=== PATIENT | male | born 1950 | race Hispanic/Latino ===

== ENCOUNTER 2021-12-11 08:11 | Day surgery (SDC) | payer OTHER ==
[2021-12-08 11:23] LABS: BASOPHILS % (AUTO) 0.8 % (0.0-5.0); HEMATOCRIT 44.7 % (42-54); MEAN CORPUSCULAR HEMOGLOBIN 32.4 pg (27.0-33.0); MEAN CORPUSCULAR VOLUME 95.3 fL (79-99); MONOCYTES % (AUTO) 11.9 % (3.0-13.0); PLATELET COUNT (AUTO) 195 K/uL (130-400); RED BLOOD CELL COUNT(AUTO) 4.69 MIL/uL (4.50-6.20)
[2021-12-08 11:31] LABS: CREATININE 0.8 mg/dL (0.5-1.5); POTASSIUM 4.3 mmol/L (3.5-5.1)
[2021-12-08 13:49] VITALS: BP 148/74
[2021-12-11] VITALS (16 sets, daily range): BP systolic 106–160; BP diastolic 52–83
[~2021-12-11] VITALS: Ht 160 cm; Wt 89.6 kg
[~2021-12-11 08:11] MED LIST: AMLO-258 PO; ASPI-449 PO; CEFAZOLIN SODIUM 2 GM VIAL IV SCH; DEXAMETHASONE SOD PHOSPHATE 10MG/ML 1ML VIAL ONE; FENTANYL CITRATE PF 50 MCG/1 ML 2ML VIAL ONE; GLYCOPYRROLATE 1 MG/5 ML SYRINGE ONE; IBUP-2070 PO; LIDOCAINE PF 100MG/5ML (2%) SYRINGE 5ML ONE; METO25TA6 PO; MIDAZOLAM HCL 1 MG/ML 2ML VIAL ONE; NEOSTIGMINE 5MG/5ML SYR IV ONE; ONDANSETRON 4MG INJ ONE; PROPOFOL 10 MG/ML 20ML VIAL IV ONE; ROCURONIUM 10MG/1ML SYR 10 MG/ML ML ONE; SUCCINYLCHOLINE 200MG/10ML SYR ONE
[2021-12-11] MEDS ORDERED: LACTATED RINGERS 1000ML 1,000 ML IV ONE (08:25)
[2021-12-11] MEDS ORDERED: CEFAZOLIN SODIUM 1 GM VIAL ONE (08:25)
[2021-12-11] MEDS ORDERED: INDOCYANINE GREEN 25 MG VIAL IJ ONE (09:07)
[2021-12-11] MEDS ORDERED: BUPIVACAINE/PF 0.5% 30ML VIAL ONE (09:08)
[2021-12-11] MEDS ORDERED: FENTANYL CITRATE PF 50 MCG/1 ML 2ML VIAL ONE (10:31)
[2021-12-11] MEDS ORDERED: ARTIFICIAL TEARS 3.5 GM OINTMENT ONE (10:51)
[2021-12-11] MEDS ORDERED: OXYMETAZOLINE HCL SPRAY 15 ML BOTTLE ONE (10:51)
[2021-12-11] MEDS ORDERED: MEPERIDINE-PF 25 MG/ML SYG ONE ×2 (11:29→11:37)
[2021-12-11] MEDS ORDERED: ONDANSETRON 4MG INJ ONE (12:46)
== END 2021-12-11 13:10 | disposition home or self-care (01) ==
LOC: DAH 08:11
PROVIDERS: ATTEND Surgery
DX: K81.1 Chronic cholecystitis (principal); K82.8 Other specified diseases of gallbladder; I10 Essential (primary) hypertension; E66.9 Obesity, unspecified; Z79.82 Long term (current) use of aspirin; Z80.9 Family history of malignant neoplasm, unspecified; Z79.899 Other long term (current) drug therapy; Z68.35 Body mass index [BMI] 35.0-35.9, adult
CPT/HCPCS: 47562; S2900; 36415; 80048; 85025; 87635; 93005; C9803; J0330; J0690; J1100; J2001; J2175; J2250; J2405; J2704; J2710; J3010; J3490; J7030; J7120

== ENCOUNTER 2025-03-06 14:07 | Emergency (ER) | payer MEDICARE, OTHER ==
[~2025-03-06] VITALS: Ht 157.5 cm; Wt 72.6 kg
[~2025-03-06 14:07] MED LIST changes: -CEFAZOLIN SODIUM 2 GM VIAL IV SCH; -DEXAMETHASONE SOD PHOSPHATE 10MG/ML 1ML VIAL ONE; -FENTANYL CITRATE PF 50 MCG/1 ML 2ML VIAL ONE; -GLYCOPYRROLATE 1 MG/5 ML SYRINGE ONE; -LIDOCAINE PF 100MG/5ML (2%) SYRINGE 5ML ONE; -MIDAZOLAM HCL 1 MG/ML 2ML VIAL ONE; -NEOSTIGMINE 5MG/5ML SYR IV ONE; -ONDANSETRON 4MG INJ ONE; -PROPOFOL 10 MG/ML 20ML VIAL IV ONE; -ROCURONIUM 10MG/1ML SYR 10 MG/ML ML ONE; -SUCCINYLCHOLINE 200MG/10ML SYR ONE
--- NOTE | 2025-03-06 14:14 | NUR ---
TRAUMA DOWGRADED AT THIS TIME PER DR. ROCHA.
--- NOTE | 2025-03-06 14:28 | EKG ---
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
[2025-03-06 14:54] LABS: BASOPHILS # (AUTO) 0.05 K/uL (0.00-0.20); BASOPHILS % (AUTO) 0.8 % (0.0-5.0); EOSINOPHILS # (AUTO) 0.22 K/uL (0.00-0.70); EOSINOPHILS % (AUTO) 3.6 % (0.0-8.0); HEMATOCRIT 43.5 % (42-54); IMMATURE GRANULOCYTE ABSOLUTE 0.05 K/uL (0-1); LYMPHOCYTES # (AUTO) 0.8 K/uL (1.0-4.8); LYMPHOCYTES % (AUTO) 13.1 % (21.0-51.0); MEAN CORPUSCULAR HEMOGLOBIN 32.8 pg (27.0-33.0); MEAN CORPUSCULAR HGB CONC 34.7 g/dL (32.0-36.0); MEAN CORPUSCULAR VOLUME 94.4 fL (79-99); MONOCYTES # (AUTO) 0.6 K/uL (0.1-1.0); MONOCYTES % (AUTO) 9.1 % (3.0-13.0); NEUTROPHILS # (AUTO) 4.5 K/uL (1.8-7.7); NEUTROPHILS % (AUTO) 72.6 % (40.0-77.0); PLATELET COUNT (AUTO) 182 K/uL (130-400); RED BLOOD CELL COUNT(AUTO) 4.61 MIL/uL (4.50-6.20); RED CELL DISTRIBUTION WIDTH 11.8 % (11.0-15.5); WHITE BLOOD COUNT (AUTO) 6.2 K/uL (4.8-10.8)
[2025-03-06 15:03] LABS: CREATININE 0.9 mg/dL (0.5-1.3); POTASSIUM 3.9 mmol/L (3.5-5.1)
[2025-03-06 15:09] LABS: BILIRUBIN,DIRECT 0.1 mg/dL (0.0-0.3); BILIRUBIN,TOTAL 0.6 mg/dL (0.2-1.0); TOTAL PROTEIN, SERUM 7.6 g/dL (6.0-8.3)
[2025-03-06] MEDS ORDERED: IOHEXOL-350 75 ML VIAL IV ONE (15:22)
--- NOTE | 2025-03-06 15:22 | HMCIMG ---
EXAM: CR Chest, 1 View. CLINICAL HISTORY: fall COMPARISON: None provided. FINDINGS: LUNGS: The lungs show no infiltrate or other acute finding. PLEURAL SPACES: No pleural effusion or pneumothorax. MEDIASTINUM: Cardiac size and mediastinal contours within normal limits. BONES: No aggressive appearing osseous lesion seen. IMPRESSION: No acute cardiopulmonary pathology is evident. /Juliette
--- NOTE | 2025-03-06 16:08 | ERN ---
General Chief Complaint: Mechanical Fall Stated Complaint: FALL Time Seen by MD: 14:09 Source: patient History of Present Illness Initial Comments Patient is a 72-year-old male coming in three he fell from his ladder. Per patient he fell from a stool for ladder landing on the right side of his abdominal region. He states that he does have mild right upper quadrant pain on palpation. Allergies: Coded Allergies: No Known Drug Allergies (Verified Allergy, Unknown, 12/08/21) Home Meds Reported Medications Ibuprofen (Ibuprofen) 600 Mg Tablet, 600 MG PO Q6H PRN for PAIN, TAB 12/08/21 Amlodipine Besylate (Amlodipine Besylate) 10 Mg Tablet, 10 MG PO DAILY for 30 Days, #30 TAB 0 Refills 12/08/21 Metoprolol Tartrate (Metoprolol Tartrate) 25 Mg Tablet, 25 MG PO BID, TAB 12/08/21 Aspirin (Adult Low Dose Aspirin EC) 81 Mg Tablet.dr, 81 MG PO DAILY, TAB 12/08/21 Past Medical History Past Medical History: Hypertension, Other Medical History Other: fibrosis Past Surgical History: Cholecystectomy ROS Dictation CONSTITUTIONAL: No chills, no fever, no weakness, no diaphoresis, no malaise. HEAD/FACE: No signs of trauma. EENT: No eye pain, no blurred vision, no tearing, no double vision, no ear pain, no ear discharge, no nose pain, no nasal congestion, no throat pain, no throat swelling, no mouth pain. RESPIRATORY: No cough, no orthopnea, no SOB, no stridor, no wheezing. CARDIOVASCULAR: No chest pain, no edema, no palpitations, no syncope. GASTROINTESTINAL/ABDOMINAL: abdominal pain, no constipation, no diarrhea, no nausea, no vomiting. GENITOURINARY: No abnormal discharge, no dysuria, no frequent urination, no hematuria. No complaints of pain in the genitals. MUSCULOSKELETAL: No back pain, no gout, no joint pain, no joint swelling, no muscle pain, no muscle stiffness, no neck pain. INTEGUMENTARY: No change in color, no change in hair/nails, no dryness, no lesion, no lumps, no rash. NEUROLOGICAL/PSYCH: No anxiety, not depressed, no emotional problem, no headache, no numbness, no pre-existing deficit, no history of seizures, no tremors, no weakness. HEMATOLOGIC/LYMPHATIC: Not anemic, no history of blood clots, no apparent bleeding, no bruising, glands not swollen. All Systems Negative, Except as Noted. Physical Exam Physical Exam Dictation VITAL SIGNS: Reviewed. GENERAL APPEARANCE: Alert, oriented x3, no acute distress, obese. HEAD AND FACE: Non-traumatic. EYES: PERRL, pink conjunctivas, eyelid no trauma, anterior chamber clear. EARS: Pinnas intact and no signs of trauma or erythema. Ear canals clear and no discharge. TMs no erythema. NOSE: No discharge, no bleeding. OROPHARYNX: Mouth normal, teeth no caries, tongue pink. Pharynx clear, no erythema. Tonsils no exudates, no abscesses noted. Mucous membrane moist. NECK: Supple, non-tender, no thyromegaly, no masses, no JVD, no bruits. BREAST: Deferred. CHEST: No tenderness, no crepitus, no paradoxical movement, no retractions. LUNGS: Clear, well-ventilated, symmetric, no rales, no wheezing, no rhonchi, no stridor, good breath sounds bilaterally. HEART: Regular rate, regular rhythm, no murmur, no gallops. VASCULAR: No peripheral edema. ABDOMEN: Soft, positive bowel sounds, nondistended, no guarding, right upper quadrant pain reproducible on palpation, no rebound, no masses no hepatomegaly, no splenomegaly, no Austin's sign, no hernias. RECTAL: Deferred. GENITAL: Deferred. NEUROLOGICAL: Normal speech, gross motor function intact, gross sensory function intact. MUSCULOSKELETAL: Neck nontender, full range of motion, back nontender, full range of motion. EXTREMITIES: Nontender, full range of motion. SKIN: Color pink, dry, no turgor, no rash, no lacerations, no abrasions, no contusions. LYMPHATICS: Deferred. Results Laboratory and Microbiology Lab and Micro Result Laboratory Tests Test 03/06/25 14:42 White Blood Count 6.2 K/uL (4.8-10.8) Red Blood Count 4.61 MIL/uL (4.50-6.20) Hemoglobin 15.1 g/dL (14.0-18.0) Hematocrit 43.5 % (42-54) Mean Corpuscular Volume 94.4 fL (79-99) Mean Corpuscular Hemoglobin 32.8 pg (27.0-33.0) Mean Corpuscular Hemoglobin Concent 34.7 g/dL (32.0-36.0) Red Cell Distribution Width 11.8 % (11.0-15.5) Platelet Count 182 K/uL (130-400) Mean Platelet Volume 11.4 fL (7.5-10.5) H Immature Granulocyte % (Auto) 0.8 % (0-1) Neutrophils (%) (Auto) 72.6 % (40.0-77.0) Lymphocytes (%) (Auto) 13.1 % (21.0-51.0) L Monocytes (%) (Auto) 9.1 % (3.0-13.0) Eosinophils (%) (Auto) 3.6 % (0.0-8.0) Basophils (%) (Auto) 0.8 % (0.0-5.0) Neutrophils # (Auto) 4.5 K/uL (1.8-7.7) Lymphocytes # (Auto) 0.8 K/uL (1.0-4.8) L Monocytes # (Auto) 0.6 K/uL (0.1-1.0) Eosinophils # (Auto) 0.22 K/uL (0.00-0.70) Basophils # (Auto) 0.05 K/uL (0.00-0.20) Absolute Immature Granulocyte (auto 0.05 K/uL (0-1) Nucleated Red Blood Cells 0.0 % (0.0-0.19) Sodium Level 136 mmol/L (136-145) Potassium Level 3.9 mmol/L (3.5-5.1) Chloride Level 101 mmol/L (101-111) Carbon Dioxide Level 29 mmol/L (21-32) Blood Urea Nitrogen 13 mg/dL (7-18) Creatinine 0.9 mg/dL (0.5-1.3) Glomerular Filtration Rate Calc 91 mL/min (>90) Random Glucose 146 mg/dL (70-105) H Total Calcium 9.0 mg/dL (8.5-10.1) Total Bilirubin 0.6 mg/dL (0.2-1.0) Direct Bilirubin 0.1 mg/dL (0.0-0.3) Aspartate Amino Transf (AST/SGOT) 28 U/L (10-37) Alanine Aminotransferase (ALT/SGPT) 33 U/L (12-78) Alkaline Phosphatase 114 U/L (50-136) Total Protein 7.6 g/dL (6.0-8.3) Albumin 4.0 g/dL (3.5-5.0) Labs Reviewed?: Yes EKG/XRAY/US/CT/MRI EKG Comment 03/06/2025 time 2:24 p.m. Ventricular rate 65 Sinus rhythm [place] [address] wave elevation or depression X-RAY Comment [facility] [address] [id number] IMAGING REPORT Signed PATIENT: BRAYDEN SUAREZ MR#: [id number] : 1950 SEX: M AGE: 74 LOCATION: EDH ORDER 142 STATUS: REG ER REPORT#: [id number] SERVICE 142 REASON: fall ORDERING PHYSICIAN: MAUREEN ROCHA MD PROCEDURE: CXR1VW - CHEST 1VW EXAM: CR Chest, 1 View. CLINICAL HISTORY: fall COMPARISON: None provided. FINDINGS: LUNGS: The lungs show no infiltrate or other acute finding. PLEURAL SPACES: No pleural effusion or pneumothorax. MEDIASTINUM: Cardiac size and mediastinal contours within normal limits. BONES: No aggressive appearing osseous lesion seen. IMPRESSION: No acute cardiopulmonary pathology is evident. /[place]an[place] DICTATED BY: ARABELLA VANEGAS MD DATE: 03/06/251620 ELECTRONICALLY SIGNED BY: ARABELLA VANEGAS MD DATE: 03/06/[address] Scan Comment [facility] [address] [id number] IMAGING REPORT Signed PATIENT: BRAYDEN SUAREZ MR#: [id number] : 1950 SEX: M AGE: 74 LOCATION: ED ORDER 1503 STATUS: REG ER REPORT#: [id number] SERVICE 1507 REASON: fall ORDERING PHYSICIAN: MAUREEN ROCHA MD PROCEDURE: ABD PEL W - CT ABDOMEN/PELVIS W/CONTRAST EXAM: CT Abdomen and Pelvis with IV contrast CLINICAL HISTORY: fall TECHNIQUE: Axial computed tomography images of the abdomen and pelvis with intravenous contrast. CONTRAST: With intravenous contrast. COMPARISON: None provided. FINDINGS: LUNG BASES: The lung bases appear clear. No pleural effusions are seen. LIVER: Unremarkable. GALLBLADDER AND BILE DUCTS: The gallbladder is surgically absent. PANCREAS: Unremarkable. SPLEEN: Unremarkable. ADRENAL GLANDS: Unremarkable. KIDNEYS, URETERS, AND BLADDER: Multiple simple renal cysts were noted in the left kidney. Renal calculus seen in bilateral renal pelvis, largest measuring 1.6 cm right > left The kidneys appear within normal limits. There is no hydronephrosis or hydroureter. No urinary calculi are seen. STOMACH AND BOWEL: Unremarkable appearance of the stomach and bowel. No evidence of bowel obstruction. No evidence suggesting enteritis or colitis. APPENDIX: No evidence of acute appendicitis on CT examination. PERITONEUM: Umbilical Hernia noted. No free fluid. No free air. LYMPH NODES: No lymphadenopathy is evident. REPRODUCTIVE: Mild to moderate prostatic hypertrophy. Clinical correlation is advised. VASCULATURE: No evidence of abdominal aortic aneurysm. BONES: No aggressive appearing osseous lesion. Presumed chronic fracture deformity of L4. No acute osseous pathology is evident. IMPRESSION: 1. No acute intraabdominal or pelvic pathology. 2. Bilateral renal calculi, largest measuring 1.6 cm in the right renal pelvis. /Shaniko DICTATED BY: LISA CARRERA Jr., MD DATE: 03/06/251808 ELECTRONICALLY SIGNED BY: LISA CARRERA Jr., MD DATE: 03/06/251808 [facility] MDM: Differential diagnosis: Fall, abdominal discomfort, Rationale: Tests considered and ordered secondary to shared decision making include: Previous outside records reviewed: Old ER visits. Risk of complication and/or morbidity or mortality of patient management: None Medications-Per medication reconciliation Need for hospitalization: Patient does not meet criteria for hospitalization. Is a 74-year-old male coming in after he had a fall earlier today. Patient was complaining of right upper quadrant pain so cardiac workup was performed to rule out any cardiac injury. With a traumatic fall a CT of the abdomen need to be performed as well. CT did not disclose acute findings. Patient will be discharged in stable condition with a diagnosis of fall abdominal wall contusion. ED Course Orders Procedure Category Date Status Time Cbc With Differential LAB 03/06/25 Complete 14:22 Basic Metabolic Panel LAB 03/06/25 Complete 14:22 12 Lead Ekg Tracing- EKG 03/06/25 Resulted Technical 14:22 Chest 1vw RAD 03/06/25 Resulted 14:22 Hepatic Function Panel LAB 03/06/25 Complete 14:23 Ct Abdomen/Pelvis CT 03/06/25 Resulted W/Contrast 15:07 Iohexol (Omnipaque) PHA 03/06/25 Complete 15:22 Current Medications Medications (Trade) Dose Ordered Sig/Omid Route PRN Reason Start Time Stop Time Status Last Admin Dose Admin Iohexol (Omnipaque) 75 ml STK-MED ONCE IV 03/06/25 15:22 03/06/25 15:22 DC Vital Signs Date Time Temp Pulse Resp B/P (MAP) Pulse Ox O2 Delivery O2 Flow Rate FiO2 03/06/25 14:15 98.1 78 16 160/90 97 Room Air* 0 21 03/06/25 14:11 98.1 78 16 160/70 97 DX & DISP Disposition: Discharge Departure Impression: Primary Impression: Fall Additional Impression: Abdominal wall contusion Condition: Stable Scripts Acetaminophen (Tylenol) 500 Mg Tab 1 TAB PO Q6HPRN PRN for pain or fever for 5 Days, #30 TAB 0 Refills Prov: MAUREEN ROCHA MD 03/06/25 Additional Instructions: FOLLOW-UP WITH PRIMARY CARE PROVIDER IN 1 TO 2 DAYS. TAKE MEDICATIONS DIRECTED HERE IN THE EMERGENCY ROOM. OKAY TO CONTINUE HOME MEDICATIONS UNLESS OTHERWISE DISCUSSED DURING YOUR VISIT IN THE EMERGENCY ROOM TODAY. RETURN TO YOUR NEAREST EMERGENCY ROOM IF SYMPTOMS WORSEN OR IF THERE IS NO IMPROVEMENT. CALL 911 IF YOU NEED IMMEDIATE ASSISTANCE. TAKE TYLENOL [id number] NEEDED AND IF NO CONTRAINDICATIONS ARE PRESENT. INCREASE ORAL HYDRATION. A WOUND CULTURE OR URINE CULTURE WAS ORDERED HERE IN THE EMERGENCY ROOM DEPARTMENT PLEASE FOLLOW-UP WITH PRIMARY CARE PROVIDER AND ADVISE THEM TO GET REPORTS FROM OUR FACILITY. IF YOU HAD ANY JAYASHREE WRAP/SPLINTS THAT WERE APPLIED HERE, PLEASE DO NOT REMOVE THEM UNTIL YOU SEE YOUR PRIMARY CARE OR SPECIALTY. Referrals: Referrals: NOELLE MOROCHO MD (PCP) Time of Disposition: 17:17 MAUREEN ROCHA MD Mar 06, 2025 16:08
--- NOTE | 2025-03-06 17:10 | HMCIMG ---
EXAM: CT Abdomen and Pelvis with IV contrast CLINICAL HISTORY: fall TECHNIQUE: Axial computed tomography images of the abdomen and pelvis with intravenous contrast. CONTRAST: With intravenous contrast. COMPARISON: None provided. FINDINGS: LUNG BASES: The lung bases appear clear. No pleural effusions are seen. LIVER: Unremarkable. GALLBLADDER AND BILE DUCTS: The gallbladder is surgically absent. PANCREAS: Unremarkable. SPLEEN: Unremarkable. ADRENAL GLANDS: Unremarkable. KIDNEYS, URETERS, AND BLADDER: Multiple simple renal cysts were noted in the left kidney. Renal calculus seen in bilateral renal pelvis, largest measuring 1.6 cm right > left The kidneys appear within normal limits. There is no hydronephrosis or hydroureter. No urinary calculi are seen. STOMACH AND BOWEL: Unremarkable appearance of the stomach and bowel. No evidence of bowel obstruction. No evidence suggesting enteritis or colitis. APPENDIX: No evidence of acute appendicitis on CT examination. PERITONEUM: Umbilical Hernia noted. No free fluid. No free air. LYMPH NODES: No lymphadenopathy is evident. REPRODUCTIVE: Mild to moderate prostatic hypertrophy. Clinical correlation is advised. VASCULATURE: No evidence of abdominal aortic aneurysm. BONES: No aggressive appearing osseous lesion. Presumed chronic fracture deformity of L4. No acute osseous pathology is evident. IMPRESSION: 1. No acute intraabdominal or pelvic pathology. 2. Bilateral renal calculi, largest measuring 1.6 cm in the right renal pelvis. /[place]
[2025-03-06] MEDS ORDERED: ACET-66 PO (17:18)
[2025-03-06 17:28] VITALS: BP 111/71; PULSE 68; RESP 20; TEMP 98.1; O2SAT 99
[2025-03-06] MEDS ORDERED: LIDO1ADH71 TP (17:32)
[2025-03-06] MEDS: LIDOCAINE 4% ADH..PATCH TP ONE (17:41)
== END 2025-03-06 17:42 | disposition home or self-care (01) ==
LOC: EDH 14:07
DX: S30.1XXA Contusion of abdominal wall, initial encounter (principal); I10 Essential (primary) hypertension; Z79.82 Long term (current) use of aspirin; Z79.899 Other long term (current) drug therapy; Z90.49 Acquired absence of other specified parts of digestive tract; W08.XXXA Fall from other furniture, initial encounter; Y93.89 Activity, other specified; Y92.89 Other specified places as the place of occurrence of the external cause; Y99.8 Other external cause status
CPT/HCPCS: 99285; 74177; 71045; 80076; 80048; 85025; 36415; 93005; Q9967